=== PATIENT | male | born 1985 | race Caucasian/White ===

== ENCOUNTER 2018-09-20 04:54 | Inpatient (IN) | payer OTHER, SELFPAY ==
[2018-09-20] MEDS ORDERED: Fentanyl 100 MCG/2 ML VIAL ONE (05:01)
[2018-09-20 05:14] LABS: #Basophils 0.1 thou/uL (0.0-0.2); #Eosinphils 0.2 thou/uL (0.0-0.7); #Lymphocytes 3.5 thou/uL (1.20-3.40); #Monocytes 0.9 thou/uL (0.11-0.59); #Neutrophils 6.3 thou/uL (1.40-6.50); %Basophils 0.6 % (0.0-1.0); %Eosinophils 1.9 % (0.0-10.0); %Lymphocytes 32.2 % (21.0-51.0); %Monocytes 8.5 % (0.0-10.0); %Neutrophils 56.9 % (42.0-75.0); Hemoglobin 15.5 g/dL (14.0-18.0); Mean Corpuscular Hemoglobin 32.9 pg (27.0-31.0); Mean Corpuscular Volume 96.9 fL (78.0-98.0); Mean Platelet Volume 7.3 fL (7.4-10.4); Platelet Count 219 thou/uL (130-400); RBC Distribution Width 12.1 % (11.5-14.5); Red Blood Cell (RBC) Count 4.72 mill/uL (4.70-6.10)
[2018-09-20 05:20] LABS: INR-International Normal Ratio 0.9; PTT 23.7 SEC (22.9-36.1); Prothrombin Time 12.5 SEC (12.0-14.7)
[2018-09-20] MEDS ORDERED: Adacel (T-DAP) 0.5 ML SYRINGE ONE (05:33)
[2018-09-20] MEDS ORDERED: Lidocaine 1% w/Epinephrine 1:100K 20 ML VIAL ONE (05:33)
[2018-09-20 05:38] LABS: ALT (SGPT) 27 U/L (8-55); AST (SGOT) 35 U/L (5-34); Albumin 4.6 g/dL (3.5-5.0); Alcohol 264 mg/dL (Less than 10); Alkaline Phosphatase 58 U/L (40-150); Anion Gap 16 mmol/L (10-20); BUN (Urea Nitrogen) 11 mg/dL (8.9-20.6); Bilirubin, Total 0.5 mg/dL (0.2-1.2); Calc. Creatinine Clearance 0 mL/min (70-130); Calcium 9.1 mg/dL (7.8-10.44); Carbon Dioxide 22 mmol/L (22-29); Chloride 101 mmol/L (98-107); Estimated GFR-MDRD Greater than 90; Globulin 2.9 g/dL (2.4-3.5); Glucose 96 mg/dL (70-105); Potassium 3.9 mmol/L (3.5-5.1); Protein, Total 7.5 g/dL (6.0-8.3); Sodium 135 mmol/L (136-145)
[2018-09-20] MEDS ORDERED: Ketorolac Tromethamine 30 MG/ML VIAL ONE (06:05)
[2018-09-20] MEDS ORDERED: Dextrose 50% Abboject 50 ML SYRINGE SLOW IVP PRN (06:20)
[2018-09-20] MEDS ORDERED: Dextrose 5% in Water 1,000 ML IV PRN (06:20)
[2018-09-20] MEDS ORDERED: hydrALAZINE 20 MG/ML VIAL SLOW IVP PRN (06:20)
[2018-09-20] MEDS ORDERED: Morphine 2 MG/ML SYRINGE SLOW IVP PRN (06:20)
[2018-09-20] MEDS ORDERED: Sodium Chloride 0.9% 1,000 ML IV SCH (06:30)
[2018-09-20] MEDS: Acetaminophen 325 MG TAB PO SCH ×2 (07:44→11:46)
[2018-09-20] MEDS: traMADol HCl 50 MG TAB PO SCH ×4 (07:44→23:10)
[2018-09-20] MEDS: Ibuprofen 800 MG TAB PO SCH ×3 (07:44→23:10)
[2018-09-20 08:01] VITALS: BMI 20.9
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
[2018-09-20] MEDS: Senokot S 8.6-50 MG TAB PO SCH ×2 (08:53→19:59)
[2018-09-20] MEDS: traMADol HCl 50 MG TAB PO PRN (08:54)
[2018-09-20] MEDS: Folic Acid 1 MG TAB PO SCH (08:55)
[2018-09-20] MEDS: Gabapentin 300 MG CAP PO SCH ×3 (08:55→19:59)
[2018-09-20] MEDS: Thiamine 100 MG TAB PO SCH (08:55)
[2018-09-20] MEDS: Polyethylene Glycol 3350 17 GM Packet PO SCH (08:56)
[2018-09-20] MEDS ORDERED: Oxazepam 10 MG CAP PO SCH (09:00)
--- NOTE | 2018-09-20 09:08 | RAD ---
RIGHT ELBOW RADIOGRAPHS FOUR VIEWS: 09/20/2018 PROVIDED CLINICAL HISTORY: Trauma. FINDINGS: Soft tissue calcifications and lucency likely reflect laceration and foreign bodies at the medial asp ect of the right elbow, anteriorly. There is no evidence for fracture or other acute osseous abnorma lity. If there is persistent clinical concern, conservative management and follow-up imaging are advised. IMPRESSION: As above. POS: OFF
[2018-09-20] MEDS: Oxazepam 10 MG CAP PO SCH ×2 (09:32→19:59)
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
[2018-09-20] MEDS: Morphine 4 MG/ML VIAL SLOW IVP PRN ×2 (09:35→14:33)
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
[2018-09-20] MEDS: Ondansetron ODT 4 MG TAB PO PRN (10:11)
[2018-09-20] MEDS ORDERED: ISOVUE-370 76%-LOCM 1 ML ONE (10:39)
--- NOTE | 2018-09-20 13:24 | RAD ---
EXAM: XR Chest 1 View Portable PROVIDED CLINICAL HISTORY: Pneumothorax COMPARISON: Exams performed earlier same date FINDINGS: Cardiac and mediastinal silhouette is unchanged in appearance. Pulmonary contusion on the right is re demonstrated. Known right-sided pneumothorax is not radiographically apparent. Known right-sided rib fractures are not radiographically conspicuous. IMPRESSION: Redemonstration of pulmonary contusion. Known pneumothorax is not radiographically apparent.
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
[2018-09-20] MEDS ORDERED: Acetaminophen 325 MG TAB PO SCH (18:00)
[2018-09-20] MEDS: Acetaminophen 500 MG TAB PO SCH ×2 (18:14→23:10)
[2018-09-20] MEDS: Cyclobenzaprine 10 MG TAB PO PRN (20:06)
[2018-09-21] MEDS: Acetaminophen 500 MG TAB PO SCH ×2 (05:34→11:05)
[2018-09-21] MEDS: traMADol HCl 50 MG TAB PO SCH ×3 (05:34→21:13)
[2018-09-21] MEDS: Ibuprofen 800 MG TAB PO SCH ×3 (05:34→21:13)
[2018-09-21] MEDS: Gabapentin 300 MG CAP PO SCH ×3 (08:10→21:13)
[2018-09-21] MEDS: traMADol HCl 50 MG TAB PO PRN ×2 (08:11→19:19)
[2018-09-21] MEDS: Thiamine 100 MG TAB PO SCH (08:12)
[2018-09-21] MEDS: Senokot S 8.6-50 MG TAB PO SCH ×2 (08:12→21:13)
[2018-09-21] MEDS: Oxazepam 10 MG CAP PO SCH ×2 (08:13→21:57)
[2018-09-21] MEDS: Folic Acid 1 MG TAB PO SCH (08:13)
[2018-09-21] MEDS: Polyethylene Glycol 3350 17 GM Packet PO SCH (08:14)
[2018-09-21] MEDS ORDERED: traMADol HCl 50 MG TAB PO SCH (09:00)
[2018-09-21] MEDS ORDERED: Lidocaine 5% Patch TD SCH (09:00)
[2018-09-21 09:33] LABS: #Eosinphils 0.1 thou/uL (0.0-0.7); #Lymphocytes 1.2 thou/uL (1.20-3.40); #Neutrophils 4.9 thou/uL (1.40-6.50); %Basophils 0.1 % (0.0-1.0); %Eosinophils 1.6 % (0.0-10.0); %Lymphocytes 16.9 % (21.0-51.0); %Monocytes 13.9 % (0.0-10.0); %Neutrophils 67.5 % (42.0-75.0); Mean Corpuscular HGB CONC 33.6 g/dL (32.0-36.0); Mean Corpuscular Hemoglobin 32.9 pg (27.0-31.0); Mean Corpuscular Volume 97.8 fL (78.0-98.0); Mean Platelet Volume 7.5 fL (7.4-10.4); Platelet Count 160 thou/uL (130-400); RBC Distribution Width 12.2 % (11.5-14.5); Red Blood Cell (RBC) Count 4.27 mill/uL (4.70-6.10); White Blood Cell (WBC) Count 7.2 thou/uL (4.8-10.8)
[2018-09-21 09:52] LABS: Anion Gap 11 mmol/L (10-20); BUN (Urea Nitrogen) 11 mg/dL (8.9-20.6); Calc. Creatinine Clearance 132 mL/min (70-130); Calcium 9.1 mg/dL (7.8-10.44); Carbon Dioxide 24 mmol/L (22-29); Chloride 106 mmol/L (98-107); Estimated GFR-MDRD Greater than 90; Glucose 88 mg/dL (70-105); Potassium 3.9 mmol/L (3.5-5.1); Sodium 137 mmol/L (136-145)
[2018-09-21] MEDS: Ondansetron ODT 4 MG TAB PO PRN (11:01)
--- NOTE | 2018-09-21 11:30 | RAD ---
EXAM: XR Chest Pa Lat STANDARD PROVIDED CLINICAL HISTORY: Pulmonary contusion, pneumothorax COMPARISON: 09/20/2018 FINDINGS: Persistent right perihilar airspace disease with development of probable right basilar airspace disea se and small right pleural effusion. Right pneumothorax remains radiographically occult. IMPRESSION: As above.
[2018-09-21] MEDS ORDERED: Acetaminophen 500 MG TAB PO SCH (13:44)
[2018-09-21] MEDS ORDERED: HYDROcodone/Acetaminophen 10/325 mg Tablet PO SCH (13:45)
[2018-09-21] MEDS: Acetaminophen 325 MG TAB PO SCH ×2 (14:34→19:19)
[2018-09-21] MEDS: Cyclobenzaprine 10 MG TAB PO PRN ×2 (14:38→21:57)
[2018-09-21] MEDS ORDERED: Lidocaine Patch Removal 1 EACH TOP SCH (21:00)
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
[2018-09-22] MEDS: traMADol HCl 50 MG TAB PO SCH ×2 (02:02→07:24)
[2018-09-22] MEDS: Acetaminophen 325 MG TAB PO SCH ×2 (02:02→09:01)
[2018-09-22] MEDS: Ibuprofen 800 MG TAB PO SCH (05:44)
--- NOTE | 2018-09-22 07:45 | RAD ---
EXAM: Single view of the chest HISTORY: Pulmonary contusion and rib fractures COMPARISON: 09/20/2018 FINDINGS: Single view of the chest shows a normal sized cardiomediastinal silhouette. Developing opa city is seen in the right hilar region which likely represents the pulmonary contusion seen on CT. There is no evidence of mass or pleural effusion. The bones are unremarkable. IMPRESSION: Developing right pulmonary contusion
[2018-09-22 08:14] VITALS: TEMP 97.8
[2018-09-22] MEDS: Gabapentin 300 MG CAP PO SCH (08:56)
[2018-09-22] MEDS: Oxazepam 10 MG CAP PO SCH (08:57)
[2018-09-22] MEDS: Thiamine 100 MG TAB PO SCH (08:57)
[2018-09-22] MEDS: Senokot S 8.6-50 MG TAB PO SCH (08:57)
[2018-09-22] MEDS: Folic Acid 1 MG TAB PO SCH (08:57)
[2018-09-22] MEDS: Polyethylene Glycol 3350 17 GM Packet PO SCH (08:57)
[2018-09-22 11:44] VITALS: BP 126/81
[2018-09-22] MEDS ORDERED: Acetaminophen 500 MG TAB PO SCH (12:00)
[2018-09-22] MEDS: Cyclobenzaprine 10 MG TAB PO PRN (12:41)
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
== END 2018-09-22 13:20 | disposition home or self-care (01) | DRG 200 ==
LOC: ERS 04:54 → OBSVTOIN 05:47 → SURG A 05:47
PROVIDERS: ADMIT Specialist; ATTEND Specialist
PROC: 0HQDXZZ Repair Right Lower Arm Skin, External Approach (ICD-10-PCS; principal; 2018-09-20)
DX: S27.0XXA Traumatic pneumothorax, initial encounter (principal); S22.41XA Multiple fractures of ribs, right side, initial encounter for closed fracture; S27.321A Contusion of lung, unilateral, initial encounter; X58.XXXA Exposure to other specified factors, initial encounter; S51.011A Laceration without foreign body of right elbow, initial encounter; F10.129 Alcohol abuse with intoxication, unspecified; F17.210 Nicotine dependence, cigarettes, uncomplicated; Y93.84 Activity, sleeping; Y92.488 Other paved roadways as the place of occurrence of the external cause
CPT/HCPCS: 12002; 36415; 71045; 71046; 71260; 74177; 80048; 80053; 80307; 85025; 85610; 85730; 90471; 90715; 96361; 96374; 96375; G0390; J1885; J2001; J2270; J3010; Q0162; Q9966